=== PATIENT | female | born 1985 | race Caucasian/White ===

== ENCOUNTER 2020-09-20 09:49 | Emergency (ER) | payer OTHER, SELFPAY ==
[2020-09-20 09:50] VITALS: BP 129/95; PULSE 104; RESP 16; TEMP 36.7; O2SAT 99; BMI 27.8
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
[2020-09-20] MEDS: IBUPROFEN 400 MG TABLET PO (10:58)
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
== END 2020-09-20 12:23 | disposition home or self-care (01) ==
PROVIDERS: Emergency Provider Nurse Practitioner Family
DX: S80.02XA Contusion of left knee, initial encounter (principal); S20.219A Contusion of unspecified front wall of thorax, initial encounter; M54.2 Cervicalgia; M25.562 Pain in left knee; V87.7XXA Person injured in collision between other specified motor vehicles (traffic), initial encounter
CPT/HCPCS: 71046; 73562; 81003; 81025; 99283

== ENCOUNTER → 2021-06-04 12:42 | Outpatient (CLI) | payer OTHER, SELFPAY ==
--- NOTE | 2021-06-04 | DI.US.S_ITS ---
PROCEDURE: US OB >= 14 WEEKS FETUS INDICATIONS: 20 WEEK ANATOMICAL SURVEY OUTSIDE/PRIOR DATING DATA: Last menstrual period (LMP): Not known. LMP-based estimated date of delivery (RACH): Not applicable. First dating scan (date and location): June 04, 2021. Estimated date of delivery (RACH) from first dating scan: October 11, 2021. TECHNIQUE: Real-time scanning was performed of the fetus, with image documentation and biometric measurements. Endovaginal scanning: Perform COMPARISON: None. FINDINGS: General: A single living intrauterine gestation is present. Presentation: Variable Placenta: Placental position is posterior, without previa. Amniotic fluid index: 10.0 cm, normal range is 5-24 cm. heart rate: 155 beats per minute. Maternal cervical canal: Closed and 3.3 cm long. Normal lower limit is 2.5 cm. biometrics: Biparietal diameter: 21 weeks 5 days Head circumference: 21 weeks 4 days Abdominal circumference: 21 weeks 5 days Femur length: 21 weeks 3 days Estimated gestational age from initial scan: not applicable. Composite gestational age from present scan: 21 weeks 4 days Estimated weight: 437 grams. Measurement variability for biometric dating: +/- 7 days from 14 weeks to 15 weeks 6 days gestation, +/- 10 days from 16 weeks to 21 weeks 6 days gestation, +/- 2 weeks from 22 weeks to 27 weeks 6 days gestation, +/- 3 weeks for 28 weeks gestation or later. weight reference: 4500 g or EFW >90/95% is considered macrosomia or large for gestational age. EFW <10% is small for gestational age. EFW 5% or less is considered intra-uterine growth restriction. Anatomic survey: Neuro: Ventricles are non-dilated at less than 10 mm. Cisterna magna is normal at 3-11 mm. Cerebellum is normal in size and morphology. Nuchal skin fold: Normal at less than 6 mm between 14-21 weeks gestational age. Face: Nose and lips, facial profile are normal. Spine: No evidence for spina bifida. Heart: 4-chambered heart is present, with normal ventricular outflow tracts. Diaphragm: Diaphragm is intact. Stomach: Left-sided stomach is present. Kidneys: No hydronephrosis. Normal is less than 5 mm in 2nd trimester, less than 7 mm in 3rd trimester. Cord: 3-vessel cord has orthotopic insertion. Bladder: Normal in size. Extremities: All 4 extremities identified. IMPRESSION: 1. Single living intrauterine with ultrasound estimated gestational age of 21 weeks 4 days corresponding to ultrasound RACH of October 11, 2021. 2. Normal anatomic survey. Dictated by: Esme Fields MD, PhD on 06/04/2021 at 16:32 Approved by: Esme Fields MD, PhD on 06/04/2021 at 16:34
== END ==
PROVIDERS: Referring Provider Nurse Practitioner Obstetrics & Gynecology; Visit Provider Nurse Practitioner Obstetrics & Gynecology
DX: Z34.92 Encounter for supervision of normal pregnancy, unspecified, second trimester (principal); Z3A.21 21 weeks gestation of pregnancy
CPT/HCPCS: 76811

== ENCOUNTER → 2021-07-24 07:22 | Outpatient (CLI) | payer OTHER, SELFPAY ==
[2021-07-24 08:26] LABS: Glucose Fasting Gestational 100 mg/dL (76-95)
[2021-07-24 10:12] LABS: Glucose 1 Hour Gest 165 mg/dL (76-180)
[2021-07-24 10:44] LABS: Glucose Tol Interp,Gestational INTERPRETATION
[2021-07-24 11:02] LABS: Glucose 2 Hour Gest 145 mg/dL (76-155)
[2021-07-24 12:42] LABS: Glucose 3 Hour Gest 96 mg/dL (76-140)
== END ==
PROVIDERS: Referring Provider Nurse Practitioner Obstetrics & Gynecology; Visit Provider Nurse Practitioner Obstetrics & Gynecology
DX: Z13.1 Encounter for screening for diabetes mellitus (principal); Z3A.28 28 weeks gestation of pregnancy
CPT/HCPCS: 36415; 82951; 82952

== ENCOUNTER → 2021-09-16 08:55 | Outpatient (ROUT) | payer OTHER, SELFPAY | PROVIDERS: Visit Provider Nurse Practitioner Obstetrics & Gynecology | DX: Z34.90 Encounter for supervision of normal pregnancy, unspecified, unspecified trimester (principal); Z36.85 Encounter for antenatal screening for Streptococcus B; Z3A.36 36 weeks gestation of pregnancy | CPT/HCPCS: 87081 ==

== ENCOUNTER 2021-10-18 22:14 | Inpatient (IN) | payer OTHER, SELFPAY ==
--- NOTE | 2021-10-18 22:20 | P.HPOB_ITS ---
OB HPI Date/Time Date of admission: 10/18/21 Date Patient Seen: 10/18/21 Time Patient Seen: 22:30 History of Present Condition Chief complaint: : 1 Para: 0 Estimated Date of Delivery: 10/11/21 Estimated Gestational Age (weeks): 41 Narrative: Yokasta is a 35 year old female @ 41wks by LMP and 9wk US who presents for evaluation of labor. Lamb balloon was placed this morning for cervical ripenin g prior to her scheduled IOL on 10/20/21. Balloon passed through the cervix this afternoon and SROM was noted around 1830 for clear fluid. Contractions slowly progressed in frequency and intensity, now feeling moderate contractions every 3-5 minutes. +FM and no VB. Uncomplicated PN care w/ CNM. Desires low intervention . History of Present care: good care, initiated at week # (9), number of visits (13) and pounds weight gain (6) Dating criteria: LMP confirmed by 1st trimester US Ultrasounds: normal mid trimester US Obstetrical complications: none Medical complications: none Preadmission Labs Blood type: A (+) positive -: Antibody screen: negative, GBS status: negative, HBsAG: negative, HIV: negative and RPR/VDLR: negative -: Chlamydia screen: not detected and Gonorrhea screen: not detected -: Rubella: immune and Varicella: immune HCT: 33.8 HCAB: negative PAP: Normal Cell-free DNA: Negative, male 3 hr GTT: 1 hr (165), 2 hr (145) and 3 hr (96) Fasting blood glucose: 100 Evaluation Evaluation Baseline heart rate: 155 Variability: Moderate (11-25) monitor accelerations: Absent Monitor Decelerations: Absent Contraction Frequency (minutes): 3 Uterine Contraction Intensity: Moderate Dilation (cm): 6 Effacement (%): 75 station: -3 Position of cervix: posterior Consistency: soft Comments: VS: BP 129/78mmHg, HR 88bpm, T 36.2C Temporal PFSH Medical History (Updated 10/18/21 @ 22:33 by Eda Quiroga CNM) Anxiety No significant past medical history Surgical History No pertinent past surgical history Social History (Updated 02/26/22 @ 22:34 by Eda Quiroga CNM) marital status: household members: spouse lives independently: Yes caregiver/support person: No housing: house pets and animals: Yes education level: college Smoking Status: Never smoker Meds Home Medications and Allergies Home Medications Medication Instructions Recorded Confirmed Type acetaminophen 325 mg tablet 975 mg PO QID PRN 09/20/20 09/20/20 History (Tylenol) Allergies Allergy/AdvReac Type Severity Reaction Status Date / Time No Known Drug Allergies Allergy Verified 09/20/20 10:02 Review of Systems Review of Systems ROS: Yes unobtainable due to mental status OB Exam Resp Effort & Inspection: normal respiratory effort Auscultation: clear to auscultation bilaterally Cardio Rate: regular rate Rhythm: regular rhythm Heart Sounds: S1 normal and S2 normal Presentation: vertex Objective Labs Result Diagrams: 10/18/21 22:45 Assessment and Plan Assessment and Plan Assessment and Plan narrative: A: Term [place] Active labor No indication for GBS prophylaxis Cat I FHR P: Admit, routine orders. Labor support PRN. Reassess in 4 hours or sooner, PRN.
[2021-10-18 22:28] VITALS: BP 129/78
[2021-10-18 23:24] LABS: COVID19 -Nasal RAPID Negative (Negative)
[2021-10-18 23:30] LABS: Add Manual Diff / Slide Review NO; Basophils Absolute Auto 0 /uL (0-100); Basophils Percent Auto 0.4 % (0-2); Eosinophils Absolute Auto 100 /uL (0-450); Eosinophils Percent Auto 0.9 % (2-4); Hematocrit 35.2 % (36-46); Hemoglobin 11.6 g/dL (12.0-16.0); Lymphocytes Absolute Auto 1400 /uL (1100-4500); Lymphocytes Percent Auto 12.7 % (25-40); Mean Corpuscular HGB Conc 32.9 % (30-36); Mean Corpuscular Volume 84.9 fL (80-100); Monocytes Absolute Auto 500 /uL (0-900); Monocytes Percent Auto 4.9 % (3-14); Neutrophils Absolute Auto 8700 /uL (1500-7000); Neutrophils Percent Auto 81.1 % (50-75); Platelet Count 308 X10^3/uL (150-400); Red Blood Cell Count 4.14 X10^6/uL (4.0-5.2); White Blood Cell Count 10.7 X10^3/uL (4.5-11.0)
--- NOTE | 2021-10-19 03:04 | PM.OBPNLAB ---
Date/Time Date Patient Seen: 10/19/21 Time Patient Seen: 14:50 Pain Control Pain control: other (Requesting epidural) Comments: Has been breathing through strong contractions and coping well up until now. Epidural requested and IVFB started. VS: 131/84mmHg, HR 85bpm, T 97.5F Temporal Pelvic Exam Dilation (cm): 8 Effacement (%): 80 station: -2 Amniotic membrane status: Leaking (clear) Contractions Monitor mode: Palpation Pitocin rate (mU/min): 0 Contraction frequency (min): 3 Contraction duration (min): 1 Contraction intensity: Moderate Status Heart Rate Baseline: 140 Comments: Reassuring by intermittent auscultation Assessment and Plan Assessment: active labor Plan: continuous present management Comments: Epidural ASAD. Continue expectant management of labor.
--- NOTE | 2021-10-19 08:22 | PM.OBPNLAB ---
Date/Time Date Patient Seen: 10/19/21 Time Patient Seen: 08:15 Pain Control Pain control: epidural Comments: Was able to get some sleep. Has been changing positions frequently for variable decelerations. Remains comfortable. Pelvic Exam Dilation (cm): 8 Effacement (%): 80 station: -2 Amniotic membrane status: Leaking (clear) Comments: no cervical change in 4 hours Contractions Contractions on admission: regular Monitor mode: Palpation Pitocin rate (mU/min): 0 Contraction frequency (min): 4 Contraction duration (min): 1 Contraction pattern: Regular Contraction intensity: Moderate Status status: Category ll Heart Rate Baseline: 145 Monitor Accelerations: Present Monitor Decelerations: Early and Variable Monitor Variability: Moderate Assessment and Plan Assessment: active labor Plan: begin patient augmentation Comments: Counseeld on recommendation for labor augmentation and patient consents. Pitocin per protocol. Reassess in 2-4 hours or sooner, PRN.
[2021-10-19] MEDS: FENT 2MCG/ML BUPIV 0.125% EPI 200 MCG/100 ML PLAST..BAG 10 MCG EPIDURAL (11:06)
--- NOTE | 2021-10-19 13:23 | PM.OBPRVD ---
Labor & Delivery Delivery date: 10/19/21 Intrapartal Events: None Cervical ripening method: per Lamb bulb protocol Induction method: none Delivery augmentation: pitocin Delivery monitor: external FHT and external uterine Route of delivery: Episiotomy description: None L&D Laceration Description: Vaginal - 1st Degree Delivery repair: chromic (3.0) Estimated blood loss (mL): 100 Anesthesia Type: Epidural Narrative: Patient labored down for 1 hour from C/C/0 to C/C/+1 with adequate epidural anesthesia. Pushed well with coaching and encouragement. NSVB of a vigorous baby boy in CHRISTOPHER position with cord wrapped around the right arm. [place] was lifted to maternal abdomen by FOB. Remaining 30 units of pitocin in 500mL LR was increased to 200mL/hr for AMTSL. After cessation of pulsation, the cord was double clamped by CNM and cut by FOB. Cord blood hold sample was collected. Gentle cord traction and single maternal push led to spontaneous, Schultze delivery of an apparently intact placenta, membranes and marginally inserted 3VC. Fundus immediately form and bleeding scant. A first degree left sulcus laceration was repaired w/ 3.0 Chromic in the usual fashion. QBL 100mL. Both mother and baby stable and skin to skin as I left the room. Baby 1: Infant gender: Male Presentation: vertex Position: Left Occiput Anterior Placenta delivery description: Spontaneous Cord Vessel Description: 3 Vessels and Around Extremity x1 (R arm) score (1 min): 9 score (5 min): 9 weight: 3.7 kg Plan for aftercare: Routine care
[2021-10-19] MEDS: KETOROLAC 30 MG/ML VIAL IV (13:53)
[2021-10-19] MEDS: IBUPROFEN 600 MG TABLET PO (20:07)
[2021-10-20] MEDS: ACETAMINOPHEN 325 MG TABLET 650 MG PO ×2 (01:26→09:33)
[2021-10-20] MEDS: IBUPROFEN 600 MG TABLET PO ×2 (02:32→09:32)
--- NOTE | 2021-10-20 09:52 | P.DS_ITS ---
Discharge Providers Provider Date of admission: 10/18/21 22:14 Discharge Date: 10/20/21 Consults: 10/20/21 13:21 Consult to Laboratory Development Technician Routine Comment: Discharge provider: Eda Quiroga CNM Summary Hospital Course Date Patient Seen: 10/20/21 Time Patient Seen: 09:54 Diagnoses: o70.0 Hospital Course: PPD1 S/P NSVB w/ 1st degree vaginal laceration of a baby boy. Yokasta is vo iding, ambulating and breast feeding independently. Tolerating a general diet. Pain is well controlled with PO medication. Bleeding is moderate to slow, without clots. is present and supportive. Eager for discharge to home. Peripartum Data Delivery Method: Natural Vaginal Laceration Description: Vaginal - 1st Degree Episiotomy description: None 1: Gender: Male Disposition of : home Discharge Diagnosis (1) First degree perineal laceration during delivery: Start Date: 10/19/21 Start Time: 12:37 Status: Acute Status at Discharge Cognitive/behavioral status at discharge: oriented Functional status at discharge: independent ambulation Overall status at discharge: patient is progressing back to baseline Time Spent with Patient Time attestation: Total time spent providing and/or coordinating discharge services: Objective Labs Result Diagrams: 10/18/21 22:45 Exam Vital Signs (past 8 hours): BP 126/75mmHg, HR 75bpm, T 98.2F Temporal Other: Fundus firm @ U-1, lochia scant without clots. Perineum intact with slight edema. Discharge Plan Discharge Plan Patient Disposition: Home Discharge orders & Medications Prescriptions: Discontinued acetaminophen [Tylenol] 325 mg Tablet 975 mg PO QID PRN (Reason: Pain (Scale Score 4-6)) 0RF Follow up/Referrals: Eda Quiroga CNM [Advanced Advertising Consultant] - (Follow-up by Telehealth 11/01/21 @ 1120 Follow-up in office 11/22/21 @ 1030) Diet/Activity/Treatments Diet: Diet as Tolerated Activity: pelvic rest x 6 weeks Skin/Wound/Dressing Care Report to your healthcare provider any signs of infection, such as:: chills, fever, increased pain, unusual drainage and unusual redness Visit Report/Discharge Packet Instructions: Depression
[2021-10-20 13:40] VITALS: BP 126/75; PULSE 75; RESP 14; TEMP 36.8
== END 2021-10-20 15:23 | disposition home or self-care (01) | DRG 807 ==
PROVIDERS: Admitting Provider Nurse Practitioner Obstetrics & Gynecology; Referring Provider Nurse Practitioner Obstetrics & Gynecology; Visit Provider Nurse Practitioner Obstetrics & Gynecology
DX: O48.0 Post-term pregnancy (principal); Z37.0 Single live birth; O70.0 First degree perineal laceration during delivery; Z3A.41 41 weeks gestation of pregnancy
CPT/HCPCS: 01967; 36415; 59050; 85025; 86850; 86900; 86901; 87635; C9803; G0379; J1885

== ENCOUNTER → 2022-11-13 12:11 | Outpatient (CLI) | payer OTHER, MEDICAID, SELFPAY ==
--- NOTE | 2022-11-13 | DI.US.S_ITS ---
PROCEDURE: US OB >= 14 WEEKS FETUS INDICATIONS: ANATOMY SCAN OUTSIDE/PRIOR DATING DATA: Last menstrual period (LMP): June 12, 2022. LMP-based estimated date of delivery (RACH): March 11, 2023. TECHNIQUE: Real-time scanning was performed of the fetus, with image documentation and biometric measurements. Endovaginal scanning: Not performed COMPARISON: [facility], , OB >= 14 WEEKS FETUS, 06/04/2021, 13:04. FINDINGS: General: A single living intrauterine gestation is present. Presentation: Breech. Placenta: Placental position is left anterior , without previa. Placental edge measured approximately 2.8 cm from the internal cervical os. Amniotic fluid index: 10 cm, normal range is 5-24 cm. Single deepest vertical pocket is 4.1 cm. heart rate: 153 beats per minute. Maternal cervical canal: 3.9 cm long. Normal lower limit is 2.5 cm. biometrics: Biparietal diameter: 4.7 cm, 20 weeks and 2 days Head circumference: 17.8 cm, 20 weeks and 2 days Abdominal circumference: 16.5 cm, 21 weeks and 4 days Femur length: 4.0 cm, 22 weeks and 6 days Composite gestational age from present scan: 21 weeks and 2 days Estimated weight and percentile: 456 g which correlates with the 36 percentile for gestational age. Anatomic survey: Neuro: Ventricles are non-dilated at less than 10 mm. Cisterna magna is normal at 3-11 mm. Cerebellum is normal in size and morphology. Nuchal skin fold: Normal at less than 6 mm between 14-21 weeks gestational age. Face: Nose and lips, facial profile are normal. Spine: No evidence for spina bifida. Heart: 4-chambered heart is present, with normal ventricular outflow tracts. Diaphragm: Diaphragm is intact. Stomach: Left-sided stomach is present. Kidneys: No hydronephrosis. Normal is less than 5 mm in 2nd trimester, less than 7 mm in 3rd trimester. Cord: 3-vessel cord has orthotopic insertion. Bladder: Normal in size. Extremities: All 4 extremities identified. IMPRESSION: Single living intrauterine gestation with estimated sonographic gestational age of approximately 21 weeks and 2 days. Estimated weight of approximately 456 g which [address] the fetus within the 36th percentile based off gestational age. Normal second-trimester routine anatomy screening survey. We strive to produce accurate, complete, and clear reports of imaging services. To assist us in improving patient care, this report was composed using standard report templates and voice recognition software. Therefore, it may contain abnormal punctuation, insertions and/or omissions. Occasional wrong-word or sound-alike substitutions may occur. Though we review the report and make efforts to correct it, we do recommend that the report be read carefully in proper context to recognize any text inaccuracies. Dictated by: Aron Massey M.D. on 11/13/2022 at 15:58 Approved by: Aron Massey M.D. on 11/13/2022 at 16:03
== END ==
PROVIDERS: Referring Provider Nurse Practitioner Obstetrics & Gynecology; Visit Provider Nurse Practitioner Obstetrics & Gynecology
DX: Z34.82 Encounter for supervision of other normal pregnancy, second trimester (principal); Z3A.21 21 weeks gestation of pregnancy
CPT/HCPCS: 76811

== ENCOUNTER → 2022-12-04 07:58 | Outpatient (CLI) | payer OTHER, MEDICAID, SELFPAY ==
[2022-12-04 09:47] LABS: Glucose Fasting 92 mg/dL (70-100)
[2022-12-04 10:25] LABS: Glucose Tol Interpretation INTERPRETATION
[2022-12-04 10:27] LABS: Glucose 1 Hour 132 mg/dL (70-170)
[2022-12-04 11:02] LABS: Hematocrit 33.3 % (36-46); Hemoglobin 11.3 g/dL (12.0-16.0); Mean Corpuscular HGB Conc 34.1 % (30-36); Mean Corpuscular Hemoglobin 28.9 PG (26-34); Mean Corpuscular Volume 84.8 fL (80-100); Platelet Count 289 X10^3/uL (150-400); Red Blood Cell Count 3.92 X10^6/uL (4.0-5.2); Red Cell Distribution Width 13.4 % (11.6-14.8); White Blood Cell Count 6.8 X10^3/uL (4.5-11.0)
[2022-12-04 12:13] LABS: Glucose 2 Hour 102 mg/dL (70-140)
== END ==
PROVIDERS: Referring Provider Advanced Practice Midwife; Visit Provider Advanced Practice Midwife
DX: Z34.80 Encounter for supervision of other normal pregnancy, unspecified trimester (principal)
CPT/HCPCS: 36415; 82951; 82952; 85027

== ENCOUNTER 2023-03-25 07:34 | Inpatient (IN) | payer OTHER, MEDICAID, SELFPAY ==
[2023-03-25 09:23] VITALS: BP 125/85
--- NOTE | 2023-03-25 11:00 | P.HPOB_ITS ---
OB HPI Date/Time Date of admission: 03/25/23 Date Patient Seen: 03/25/23 Time Patient Seen: 11:00 History of Present Condition Chief complaint: Obs of Labor : 2 Para: 1 Estimated Date of Delivery: 03/19/23 Estimated Gestational Age (weeks): 40.6 Narrative: Yokasta Zamudio is a 37 year old female @ 40wks 6days based on a sure LMP, concordant with a 10wk US who presents for evaluation of PROM. Noticed a gush of clear fluid at 1930 while giving her son a bath. Had called to check-in at that time and declined to come in for evaluation until this morning. [place] normal movement overnight and continued to noticed leaking, clear fluid every time she changed her position. Minimal cramping overnight. Small spotting when wiping this morning. Came in at 0800 this morning for evaluation with a non reactive NST and was encouraged to stay for admission. Patient decined , but agreed to a membrane sweep and walk and return and is now back and ready for admission feeling regular, mild contractions. Uncomplicated care with CNMs. Desired low intervention . Declines augmentation of labor. Partner is present and supportive. History of Present care: good care, initiated at week # (10), number of visits (9) and pounds weight gain (9) Dating criteria: LMP confirmed by 1st trimester US Ultrasounds: normal 1st trimester US and normal mid trimester US Obstetrical complications: none Medical complications: none Preadmission Labs Blood type: A (+) positive -: Antibody screen: negative, GBS status: negative, HBsAG: negative and R IN/VDLR: negative -: Chlamydia screen: not detected and Gonorrhea screen: not detected -: Rubella: immune and Varicella: immune HCT: 33.3 HCAB: negative Cell-free DNA: negative Narrative: 2hr gtt: 92/132/102 Prior (ies) History: Late term NSVB x1 Evaluation Evaluation Baseline heart rate: 145 Variability: Moderate (11-25) monitor accelerations: Absent Monitor Decelerations: Variable (mild x2) Contraction Frequency (minutes): 0 Status: Category ll (overall reasssuring) Dilation (cm): 4 Effacement (%): 75 Dilation: 3-4 cm Effacement: 60-70% station: -3 Position of cervix: posterior Consistency: soft Quintana score: 6 PFSH Medical History Anxiety No significant past medical history Surgical History No pertinent past surgical history Social History marital status: household members: spouse lives independently: Yes caregiver/support person: No housing: house pets and animals: Yes education level: college Smoking Status: Never smoker Meds Home Medications and Allergies Allergies Allergy/AdvReac Type Severity Reaction Status Date / Time No Known Drug Allergies Allergy Verified 09/20/20 10:02 Review of Systems Review of Systems ROS: Yes All systems reviewed with the patient and are negative except as otherwise documented OB Exam Vital signs Blood Pressure: 125/72 Pulse Rate: 98 Temperature: 98.1 F Resp Effort & Inspection: normal respiratory effort and able to speak in complete sentences Auscultation: clear to auscultation bilaterally Cardio Rate: regular rate Rhythm: regular rhythm Heart Sounds: S1 normal and S2 normal Presentation: vertex Objective Labs 03/25/23 09:23 Assessment and Plan Assessment and Plan Assessment and Plan narrative: A: Term primipara PROM x 15 hours without sx of infection No indication for antibiotics Reassuring FHR by doppler P: Admit, routine orders. Counseled on risk for infection with prolonged ROM. Offered breast pump for nipple stimulation or pitocin augmentation and patient continues to decline. Expectant management of PROM. Labor support PRN. Reassess in 4 hours or sooner, PRN.
[2023-03-25 11:25] LABS: Add Manual Diff / Slide Review NO; Basophils Absolute Auto 100 /uL (0-100); Basophils Percent Auto 0.9 % (0-2); Eosinophils Absolute Auto 100 /uL (0-450); Eosinophils Percent Auto 1.8 % (2-4); Hemoglobin 10.7 g/dL (12.0-16.0); Lymphocytes Absolute Auto 1200 /uL (1100-4500); Lymphocytes Percent Auto 15.1 % (25-40); Mean Corpuscular HGB Conc 33.6 % (30-36); Mean Corpuscular Hemoglobin 28.5 PG (26-34); Mean Corpuscular Volume 84.8 fL (80-100); Monocytes Absolute Auto 500 /uL (0-900); Monocytes Percent Auto 5.7 % (3-14); Neutrophils Absolute Auto 6300 /uL (1500-7000); Neutrophils Percent Auto 76.5 % (50-75); Platelet Count 322 X10^3/uL (150-400); Red Blood Cell Count 3.77 X10^6/uL (4.0-5.2); Red Cell Distribution Width 14.1 % (11.6-14.8); White Blood Cell Count 8.3 X10^3/uL (4.5-11.0)
--- NOTE | 2023-03-25 16:27 | PM.OBPRVD ---
Events: Premature Rupture Membrane and Meconium Stained Fluid Labor & Delivery Delivery date: 03/25/23 Intrapartal Events: None Cervical ripening method: none Induction method: none Delivery monitor: external FHT Route of delivery: Episiotomy description: None L&D Laceration Description: None Quantitative Blood Loss: 100 Anesthesia Type: None Complications: Narrative: Yokasta labored well without medication or augmentation. FHR was reassuring by intermittent auscultation throughout labor. Presumed complete with spontaneous urge to push in hands and knees position on the bed. Meconium stained amniotic fluid was noted with pushing. Effective pushing over the course of 3 contractions led to NSVB of a vigorous baby girl in CHRISTOPHER position. was sommersaulted through a double loose nuchal cord with easy delivery of the shoulders. After unwinding the baby, she was passed through maternal legs to her mother's arms and they were assisted to supine position. FOB and CNM with hands on at the . 30 units of pitocin in 500mL LR was started at 250mL/hr for AMTSL. After cessation of pulsation, the cord was double clamped by CNM and cut by FOB. Cord blood sample was collected. Gentle cord traction and a single maternal push led to spontaneous, Schultze delivery of an apparently intact placenta, membranes and 3VC. Fundus immediately firm and bleeding minimal. Vagina and perineum inspected and intact. QBL 100mL. Both mother and baby stable and skin to skin as I left the room. Baby 1: gender: Female Presentation: vertex Position: Left Occiput Anterior Placenta delivery description: Spontaneous Cord Vessel Description: 3 Vessels, Nuchal Cord (x2) and Loose score (1 min): 8 score (5 min): 9 weight: 3.298 kg Plan for aftercare: Routine care
[2023-03-25] MEDS: KETOROLAC 30 MG/ML VIAL IV (17:09)
[2023-03-25 17:21] VITALS: BP 125/72; PULSE 98; TEMP 36.7
[2023-03-25 22:54] VITALS: TEMP 36.6
[2023-03-25] MEDS: IBUPROFEN 600 MG TABLET PO (22:54)
[2023-03-26] MEDS: IBUPROFEN 600 MG TABLET PO (08:12)
--- NOTE | 2023-03-26 09:17 | PM.OBDS.1 ---
Discharge Providers Provider Date of admission: 03/25/23 07:34 Discharge Date: 03/26/23 Primary care physician: Doctor Ricardo MD Consults: 03/25/23 09:23 Consult to Anesthesiology Urgent Comment: Consulting Provider: Anesthesiologist Reason for consultation: Epidural 03/26/23 16:21 Consult to Insurance Claims Adjuster Routine Comment: Discharge provider: Eda Quiroga CNM Summary Hospital Course Date Patient Seen: 03/26/23 Time Patient Seen: 09:18 Diagnoses: O80 Hospital Course: PPD1: Stable s/p NSVB with no lacerations or complications. Voiding, ambulating and independently. Tolerating a general diet. Pain is well controlled with PO medication. Vaginal bleeding is decreasing, without clots. Eager for discharge to home. Partner is present and supportive with ability to provide transportation and assistance at home. Peripartum Data Infant Delivery Method: Natural Vaginal Laceration Description: None Episiotomy description: None 1: Gender: Female Disposition of : home Discharge Diagnosis (1) Encounter for full-term uncomplicated delivery: Status: Acute Status at Discharge Cognitive/behavioral status at discharge: oriented and calm Functional status at discharge: independent ambulation Time Spent with Patient Time attestation: Total time spent providing and/or coordinating discharge services: Objective Labs 03/25/23 09:23 Labs: Laboratory Results - last 24 hr 03/25/23 03/25/23 09:23 09:23 WBC 8.3 RBC 3.77 L Hgb 10.7 L Hct 32.0 L MCV 84.8 MCH 28.5 MCHC 33.6 RDW 14.1 Plt Count 322 Neut % (Auto) 76.5 H Lymph % (Auto) 15.1 L [place] % (Auto) 5.7 Eos % (Auto) 1.8 L Baso % (Auto) 0.9 Neut # (Auto) 6300 Lymph # (Auto) 1200 [place] # (Auto) 500 Eos # (Auto) 100 Baso # (Auto) 100 Blood Type A Positive Antibody Screen Negative Exam Vital Signs (past 8 hours): BP 118/66mmHg, HR 92bpm, RR 16, T 98.1F Temporal Other: Funds firm @ -1, lochia small. Minimal perineal edema, perineum intact. Discharge Plan Discharge Plan Patient Disposition: Home Discharge orders & Medications Prescriptions: New ibuprofen 600 mg Tablet 600 mg PO Q6HR PRN (Reason: Pain, Mild (1-3)) 14 Days Qty: 60 0RF Follow up/Referrals: Eda Quiroga CNM [Advanced Asphalt Tamping Machine Operator] - (Follow-up in office at 2 weeks on 04/06/23 @ 4:45pm Follow-up in office at 6 week on 05/03/23 @ 1:15pm) Doctor Silva MD [Primary Care Provider] - Diet/Activity/Treatments Diet: Diet as Tolerated and Regular Activity: pelvic rest x 6 weeks Skin/Wound/Dressing Care Report to your healthcare provider any signs of infection, such as:: chills, fever, increased pain, unusual drainage and unusual redness Visit Report/Discharge Packet Instructions: DI for Depression Stand Alone Forms: Patient Portal/API Discharge Data Primary Care Provider: Doctor Ricardo
[2023-03-26 13:45] VITALS: BP 109/68; PULSE 80; RESP 16; TEMP 36.6
== END 2023-03-26 14:28 | disposition home or self-care (01) | DRG 560 ==
PROVIDERS: Admitting Provider Nurse Practitioner Obstetrics & Gynecology; Referring Provider Nurse Practitioner Obstetrics & Gynecology; Visit Provider Nurse Practitioner Obstetrics & Gynecology
DX: O42.02 Full-term premature rupture of membranes, onset of labor within 24 hours of rupture (principal); Z3A.40 40 weeks gestation of pregnancy; Z37.0 Single live birth
CPT/HCPCS: 36415; 59050; 84112; 85025; 86850; 86900; 86901; G0379; J1885

== ENCOUNTER → 2024-11-06 13:27 | Outpatient (CLI) | payer OTHER, SELFPAY ==
[2024-11-06 14:30] LABS: Alanine Aminotransferase 17 IU/L (<35); Albumin 4.7 g/dL (3.5-5.0); Albumin Globulin Ratio 1.3 (1.0-2.8); Alkaline Phosphatase 52 U/L (38-126); Aspartate Aminotransferase 24 IU/L (14-36); BUN Creatinine Ratio 16.7 (6-22); Bilirubin Total 0.5 mg/dL (0.2-1.3); Blood Urea Nitrogen 12 mg/dL (7-17); Calcium 9.3 mg/dL (8.4-10.2); Carbon Dioxide 25 mmol/L (22-32); Chloride 103 mmol/L (98-107); Estimated Glomerular Filt Rate > 60 mL/min (>60); Globulin 3.7 g/dL (1.7-4.1); Glucose 102 mg/dL (70-100); HEMOLYSIS < 15 (0-50); Potassium 4.1 mmol/L (3.4-5.1); Sodium 138 mmol/L (137-145); Total Protein 8.4 g/dL (6.3-8.2)
[2024-11-06 14:35] LABS: Add Manual Diff / Slide Review NO; Basophils Absolute Auto 0 /uL (0-100); Basophils Percent Auto 0.6 % (0-2); Eosinophils Absolute Auto 200 /uL (0-450); Eosinophils Percent Auto 3.2 % (2-4); Hematocrit 38.7 % (36-46); Hemoglobin 13.1 g/dL (12.0-16.0); Lymphocytes Absolute Auto 1800 /uL (1100-4500); Lymphocytes Percent Auto 34.4 % (25-40); Mean Corpuscular HGB Conc 33.9 % (30-36); Mean Corpuscular Hemoglobin 30.1 PG (26-34); Mean Corpuscular Volume 88.8 fL (80-100); Monocytes Absolute Auto 300 /uL (0-900); Monocytes Percent Auto 5.8 % (3-14); Neutrophils Absolute Auto 2900 /uL (1500-7000); Platelet Count 333 X10^3/uL (150-400); Red Blood Cell Count 4.36 X10^6/uL (4.0-5.2); Red Cell Distribution Width 12.7 % (11.6-14.8); White Blood Cell Count 5.2 X10^3/uL (4.5-11.0)
[2024-11-06 15:01] LABS: Free T3, Triiodothyronine Free 3.41 pg/mL (2.77-5.27)
[2024-11-06 15:08] LABS: Progesterone, Total 9.65 ng/mL
[2024-11-06 15:15] LABS: Thyroid Stimulating Hormone 1.99 uIU/mL (0.47-4.68)
[2024-11-06 15:23] LABS: Estradiol, Total 146.6 pg/mL
[2024-11-06 23:07] LABS: Sex Hormone Binding Globulin 88.7 nmol/L (24.6-122.0)
== END ==
PROVIDERS: Referring Provider Specialist; Visit Provider Specialist
DX: Z51.81 Encounter for therapeutic drug level monitoring (principal); F41.9 Anxiety disorder, unspecified; N92.6 Irregular menstruation, unspecified
CPT/HCPCS: 36415; 80053; 80061; 82670; 84144; 84270; 84402; 84443; 84481; 85025

== ENCOUNTER → 2025-05-23 09:02 | Outpatient (CLI) | payer OTHER, SELFPAY ==
--- NOTE | 2025-05-23 09:04 | DI.US.S_ITS ---
PROCEDURE: US OB >= 14 WEEKS FETUS INDICATIONS: 20 weeks anatomy scan OUTSIDE/PRIOR DATING DATA: Last menstrual period (LMP): 01/09/2025. LMP-based estimated date of delivery (RACH): 10/16/2025. First dating scan (date and location): 03/21/2025. Estimated date of delivery (RACH) from first dating scan: 10/15/2025. The calculations are made using the RACH of 10/16/2025. TECHNIQUE: Real-time scanning was performed of the fetus, with image documentation and biometric measurements. Endovaginal scanning: Not performed COMPARISON: [facility], , OB >= 14 WEEKS FETUS, 11/13/2022, 12:18. FINDINGS: General: A single living intrauterine gestation is present. Presentation: Breech. Placenta: Placental position is anterior , without previa. Amniotic fluid index: 13.4 cm, normal range is 5-24 cm. Single deepest vertical pocket is 4.1 cm. heart rate: 137 beats per minute. Maternal cervical canal: 4.5 cm long. Normal lower limit is 2.5 cm. biometrics: Biparietal diameter: 4.3 centimeters, 19 weeks 0 days Head circumference: 16.6 centimeters, 19 weeks 2 days Abdominal circumference: 14.0 centimeters, 19 weeks 3 days Femur length: 3.1 centimeters, 19 weeks 5 days Clinically estimated gestational age: 19 weeks 1 day Composite gestational age from present scan: 19 weeks 3 days Estimated weight and percentile: 294 grams, 65 percent Anatomic survey: Neuro: Ventricles are non-dilated at less than 10 mm. Cisterna magna is normal at 3-11 mm. Cerebellum is normal in size and morphology. Nuchal skin fold: Normal at less than 6 mm between 14-21 weeks gestational age. Face: Nose and lips, facial profile are normal. Spine: No evidence for spina bifida. Heart: Left ventricular echogenic focus measuring 0.7 millimeters. 4-chambered heart is present, with normal ventricular outflow tracts. Diaphragm: Diaphragm is intact. Stomach: Left-sided stomach is present. Kidneys: No hydronephrosis. Normal is less than 5 mm in 2nd trimester, less than 7 mm in 3rd trimester. Cord: 3-vessel cord has orthotopic insertion. Bladder: Normal in size. Extremities: All 4 extremities identified. IMPRESSION: 1. Single live intrauterine consistent with 19 weeks and 3 days. 2. Left ventricular echogenic focus measuring 0.7 millimeters. Consider cell free DNA aneuploidy screen. 3. Remainder of anatomic survey is within normal limits. We strive to produce accurate, complete, and clear reports of imaging services. To assist us in improving patient care, this report was composed using standard report templates and voice recognition software. Therefore, it may contain abnormal punctuation, insertions and/or omissions. Occasional wrong-word or sound-alike substitutions may occur. Though we review the report and make efforts to correct it, we do recommend that the report be read carefully in proper context to recognize any text inaccuracies. Dictated by: Jun Sinclair M.D. on 05/23/2025 at 10:27 Approved by: Jun Sinclair M.D. on 05/23/2025 at 10:34
== END ==
LOC: US 09:02
PROVIDERS: Referring Provider Advanced Practice Midwife; Visit Provider Advanced Practice Midwife
DX: Z34.92 Encounter for supervision of normal pregnancy, unspecified, second trimester (principal); Z3A.19 19 weeks gestation of pregnancy
CPT/HCPCS: 76811